=== PATIENT | female | born 1955 | race American Indian/Alaskan Native ===

== ENCOUNTER 2018-04-25 16:26 | Emergency (ER) | payer OTHER ==
[2018-04-25 17:01] LABS: Basophils # (Auto) 0.1 K/mm3 (0.0-0.1); Basophils % (Auto) 0.7 % (0.0-1.8); Eosinophils # (Auto) 0.1 K/mm3 (0.0-0.4); Eosinophils % (Auto) 1.3 % (0.0-4.3); Hematocrit 39.7 % (30.3-42.9); Hemoglobin 13.8 gm/dl (10.1-14.3); Lymphocytes # (Auto) 2.2 K/mm3 (1.2-5.4); Lymphocytes % (Auto) 24.6 % (13.4-35.0); Mean Corpuscular HGB Conc 35 % (30-34); Mean Corpuscular Hemoglobin 33 pg (28-32); Mean Corpuscular Volume 95 fl (79-97); Monocytes # (Auto) 0.5 K/mm3 (0.0-0.8); Monocytes % (Auto) 5.7 % (0.0-7.3); Platelet Count 291 K/mm3 (140-440); Red Blood Count 4.17 M/mm3 (3.65-5.03); Red Cell Distribution Width 13.7 % (13.2-15.2)
[2018-04-25 17:07] LABS: BUN/Creatinine Ratio 23; Blood Urea Nitrogen 18 mg/dL (7-17); Calcium 9.8 mg/dL (8.4-10.2); Hemolysis Index 4
--- NOTE | 2018-04-25 17:41 | Emergency Department Report ---
Blank Doc - Documentation Documentation: She is a 62-year-old female past medical history hypertension and who is complaining of chest discomfort. Patient states she was at work this morning approximately 11 AM and started getting some discomfort in the right chest and right upper quadrant. Patient states there is some mild shortness of breath and there was some discomfort when she takes a deep breath as well. Patient states is no exertional component she's had just some very minimal cough secondary to shortness of breath but does not feel any fevers chills nausea vomiting diaphoresis at this time. Brief physical exam patient's heart lungs are within normal limits. Laboratory studies been drawn and the patient will also receive a chest x-ray and ultrasound rule out gallstones. Patient's EKG shows no acute process.
--- NOTE | 2018-04-25 18:57 | Ultrasound Report ---
FINAL REPORT PROCEDURE: Abdominal ultrasound. TECHNIQUE: Real-time sonography in multiple planes of the abdomen was performed with image documentation. CPT 64713 HISTORY: Right upper quadrant abdominal pain. COMPARISON: No prior studies are available for comparison. FINDINGS: The liver has uniform echogenicity. There are no focal masses. The gallbladder is well distended with normal wall thickness. There are no gallstones. The common hepatic duct measures 4.5 millimeters. The pancreas was suboptimally visualized. Both kidneys appear normal in size and have normal echogenicity. There is no hydronephrosis. The spleen appears normal. The proximal portion of the abdominal aorta has a normal caliber. IMPRESSION: Normal study.
--- NOTE | 2018-04-25 19:03 | Emergency Department Report ---
ED Chest Pain HPI - General Chief Complaint: Chest Pain Stated Complaint: CHEST PAIN Time Seen by Provider: 04/25/18 17:30 Source: patient Mode of arrival: Ambulatory Limitations: No Limitations - History of Present Illness Initial Comments: She is a 62-year-old female who presents with right sided chest pain for 1 day. Patient reports feeling discomfort around right breast while at work yesterday when she leaned over to pick something up off the floor. States pain radiating from under right breast to right upper quadrant. She thought it was related to gas. She took 2 gas-x pills with some improvement of symptoms. Patient states there is some mild shortness of breath and there was some discomfort when she takes a deep breath as well. Denies fever, recent upper respiratory infection, palpitations, syncope, nausea or vomiting, and referred pain. MD Complaint: chest pain Onset/Timin -: days(s) Onset: during exertion Pain Location: right chest Pain Radiation: none Severity: moderate Severity scale (0 -10): 5 Quality: tightness, aching Consistency: intermittent Improves With: nothing Worsens With: inspiration, movement Other Symptoms: cough. denies: fever, syncope, rash, acid taste in mouth, leg swelling, palpitations, burping Treatments Prior to Arrival: none Aspirin use within the Past 7 Days: (0) No - Related Data On Oral Contraceptives: No Previous Rx's Medication Instructions Recorded Last Taken Type Acetaminophen/Codeine [Tylenol 1 tab PO Q6H PRN #12 tab 04/25/18 Unknown Rx /Codeine # 3 tab] Allergies Allergy/AdvReac Type Severity Reaction Status Date / Time aspirin Allergy Vomiting Verified 04/25/18 16:37 Heart Score - HEART Score History: Slightly suspicious EKG: Normal Age: 45-65 Risk factors: 1-2 risk factors Troponin: < normal limit HEART Score: 2 ED Review of Systems ROS: Stated complaint: CHEST PAIN Other details as noted in HPI Constitutional: denies: chills, fever Respiratory: denies: cough, shortness of breath, wheezing Cardiovascular: chest pain (right sided chest pain). denies: palpitations Gastrointestinal: denies: abdominal pain, nausea, diarrhea Musculoskeletal: denies: back pain, joint swelling, arthralgia Neurological: denies: headache, weakness, paresthesias Psychiatric: denies: anxiety, depression ED Past Medical Hx - Past Medical History Previous Medical History?: Yes Hx Hypertension: Yes - Surgical History Past Surgical History?: No - Social History Smoking Status: Former Smoker Substance Use Type: Alcohol, Prescribed - Medications Home Medications: Home Medications Medication Instructions Recorded Confirmed Last Taken Type Acetaminophen/Codeine [Tylenol 1 tab PO Q6H PRN #12 tab 04/25/18 Unknown Rx /Codeine # 3 tab] ED Physical Exam - General Limitations: No Limitations General appearance: alert, in no apparent distress - Respiratory Respiratory exam: Present: normal lung sounds bilaterally. Absent: respiratory distress - Cardiovascular Cardiovascular Exam: Present: regular rate, normal rhythm. Absent: systolic murmur, diastolic murmur, rubs, gallop - GI/Abdominal GI/Abdominal exam: Present: soft, normal bowel sounds. Absent: organomegaly, mass - Neurological Exam Neurological exam: Present: alert, oriented X3 - Psychiatric Psychiatric exam: Present: normal affect, normal mood - Skin Skin exam: Present: warm, dry, intact, normal color. Absent: rash ED Course Vital Signs 04/25/18 16:37 Temperature 98 F Pulse Rate 76 Respiratory 18 Rate Blood Pressure 158/75 O2 Sat by Pulse 99 Oximetry ED Medical Decision Making - Lab Data Result diagrams: 04/25/18 16:44 04/25/18 16:44 - Radiology Data Radiology results: report reviewed PROCEDURE: Abdominal ultrasound. TECHNIQUE: Real-time sonography in multiple planes of the abdomen was performed with image documentation. CPT 37097 HISTORY: Right upper quadrant abdominal pain. COMPARISON: No prior studies are available for comparison. FINDINGS: The liver has uniform echogenicity. There are no focal masses. The gallbladder is well distended with normal wall thickness. There are no gallstones. The common hepatic duct measures 4.5 millimeters. The pancreas was suboptimally visualized. Both kidneys appear normal in size and have normal echogenicity. There is no hydronephrosis. The spleen appears normal. The proximal portion of the abdominal aorta has a normal caliber. IMPRESSION: Normal study. PROCEDURE: Chest. TECHNIQUE: PA and lateral views. HISTORY: Chest pain. COMPARISON: No prior studies are available for comparison. FINDINGS: The heart and mediastinum appear normal. There is faint calcification in the aortic arch. The lungs are clear and well expanded. There are no pleural effusions. The soft tissues and regional skeleton are unremarkable. IMPRESSION: No evidence of acute disease. - Medical Decision Making 62 y.o. female that presents with right-sided chest pain that is non-radiating for 1 day. Patient examined by me and in no acute distress. Vitals stable. Obtained BMP, CBC, troponin, d-dimer, EKG, ultrasound of abdomen, and chest xray. Negative troponin and d-dimer, all of the labs are unremarkable, no acute findings on EKG. Will start trial run of tylenol #3 for pain. Pain is not reproducible. Start Tylenol #3 by mouth every 6 hours when necessary for pain. Discharged home stable. Follow-up with primary care if the [place]. Critical care attestation.: If time is entered above; I have spent that time in minutes in the direct care of this critically ill patient, excluding procedure time. ED Disposition Clinical Impression: Right-sided chest pain Disposition: TO HOME OR SELFCARE Is pt being admited?: No Does the pt Need Aspirin: No Condition: Stable Instructions: Chest Pain (ED) Additional Instructions: Take ibuprofen every 6 hours as needed for pain control. Follow up with primary care provider in 24-72 hours. Return to ER if chest pain unresolved, shortness of breath, or difficulty breathing. Prescriptions: Acetaminophen/Codeine [Tylenol /Codeine # 3 tab] 1 tab PO Q6H PRN #12 tab PRN Reason: Pain , Severe (7-10) Referrals: [facility] [Outside] - 3-5 Days Forms: Work/School Release Form(ED) Time of Disposition: 21:35 Print Language: KYRGYZ
--- NOTE | 2018-04-25 21:11 | XRay Report ---
FINAL REPORT PROCEDURE: Chest. TECHNIQUE: PA and lateral views. HISTORY: Chest pain. COMPARISON: No prior studies are available for comparison. FINDINGS: The heart and mediastinum appear normal. There is faint calcification in the aortic arch. The lungs are clear and well expanded. There are no pleural effusions. The soft tissues and regional skeleton are unremarkable. IMPRESSION: No evidence of acute disease.
[2018-04-25 21:45] VITALS: BP 136/66
== END 2018-04-25 21:44 | disposition home or self-care (01) ==
LOC: ED 16:26
DX: R07.89 Other chest pain (principal); R06.02 Shortness of breath; I10 Essential (primary) hypertension; Z87.891 Personal history of nicotine dependence; Z88.6 Allergy status to analgesic agent
CPT/HCPCS: 36415; 71046; 76700; 80048; 84484; 85025; 85379; 93005; 93010; 99285